=== PATIENT | female | born 1950 | race American Indian/Alaskan Native ===

== ENCOUNTER 2016-08-09 14:40 | Emergency (ER) | payer OTHER, MEDICARE ==
[2016-08-09 15:20] VITALS: BP 151/89
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
--- NOTE | 2016-08-10 08:33 | XRay Report ---
RIGHT SHOULDER THREE VIEWS: 08/09/16 14:40:00 CLINICAL: Trauma and pain. FINDINGS: Normal glenohumeral alignment. Mild glenohumeral joint arthritis. Normal AC joint. No fracture or dislocation. No bone lesion. Normal soft tissues. IMPRESSION: Mild arthritis and no apparent traumatic injury.
--- NOTE | 2016-08-16 22:37 | ED Elopement Review ---
ED Pt Elopement review - Call Back decision Pt Call Back Decision: No action required
== END 2016-08-09 17:54 | disposition left against medical advice (07) ==
LOC: ED 14:40
DX: M54.9 Dorsalgia, unspecified (principal); V49.59XA Passenger injured in collision with other motor vehicles in traffic accident, initial encounter; Y92.9 Unspecified place or not applicable; Z53.21 Procedure and treatment not carried out due to patient leaving prior to being seen by health care provider
CPT/HCPCS: 72125